=== PATIENT | female | born 1985 | race Caucasian/White ===

== ENCOUNTER 2018-09-10 09:34 | Emergency (ER) | payer BC, OTHER ==
[2018-09-10] MEDS ORDERED: IBUPROFEN 600 MG TABLET (FP) PO ONE (09:59)
[2018-09-10] MEDS ORDERED: ACETAMINOPHEN 500 MG TABLET (FP) PO ONE (09:59)
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
[2018-09-10 10:04] VITALS: BP 114/75; PULSE 73; TEMP 97.5; BMI 20.3
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
== END 2018-09-10 10:25 | disposition home or self-care (01) ==
LOC: FER 09:34
DX: M54.9 Dorsalgia, unspecified (principal); V40.5XXA Car driver injured in collision with pedestrian or animal in traffic accident, initial encounter; Y93.89 Activity, other specified; Y92.412 Parkway as the place of occurrence of the external cause
CPT/HCPCS: 99282-25